=== PATIENT | female | born 1995 | race Caucasian/White ===

== ENCOUNTER 2023-07-04 04:07 | Emergency (ER) | payer MEDICAID ==
[~2023-07-04] VITALS: Ht 167.6 cm; Wt 73.0 kg
[2023-07-04 04:36] VITALS: BP 93/53; PULSE 80; RESP 16; O2SAT 97
[2023-07-04 05:23] LABS: BASOPHILS % 0.3 % (0.0-2.0); EOSINOPHILS % 0.3 % (0.0-5.0); HEMATOCRIT. 29.1 % (36.0-48.0); HEMOGLOBIN. 9.7 g/dL (12.0-16.0); LYMPHOCYTES % 10.8 % (20.0-50.0); MEAN CORPUSCULAR HEMOGLOBIN 29.6 pg (28.0-32.0); MEAN CORPUSCULAR HGB CONC 33.3 g/dL (31.0-37.0); MEAN PLATELET VOLUME 10.9 fl (7.4-10.4); MONOCYTES % 5.2 % (2.0-8.0); NEUTROPHILS % 83.4 % (40.0-76.0); PLATELET 143 x1000/uL (130-400); RED BLOOD CELL COUNT 3.27 mill/uL (4.2-5.4); RED CELL DISTRIBUTION WIDTH 13.1 % (11.6-14.6); WHITE BLOOD COUNT 8.4 x1000/uL (4.5-11.0)
[2023-07-04 05:34] LABS: CHLORIDE 109 mEq/L (98-107); INDEX HEMOLYSI 1 (1-3); INDEX ICTERIC 1 (1-4); INDEX LIPEMIC 1 (1-3); POTASSIUM 3.7 mEq/L (3.5-5.1); SODIUM 137 mEq/L (136-145)
[2023-07-04 06:01] LABS: ALANINE AMINOTRANSFERASE 15 IU/L (13-61); ASPARTATE AMINOTRANSFERASE 15 IU/L (15-37); B-HCG QUANTITATIVE 16201 mIU/mL (<3); BILIRUBIN TOTAL 0.4 mg/dL (0.1-1.0); CALCIUM 8.1 mg/dL (8.5-10.1); CARBON DIOXIDE 22 mEq/L (21-32); CREATININE 0.4 mg/dL (0.6-1.3); GLUCOSE 97 mg/dL (70-105); PROTEIN TOTAL 6.5 g/dL (6.0-8.3); UREA NITROGEN BLOOD 8 mg/dL (7-21)
[2023-07-04 07:30] VITALS: TEMP 99.2
[2023-07-04] MEDS ORDERED: ACETAMINOPHEN 325MG TABLET PO ONE (07:30)
[2023-07-04 10:08] LABS: CLARITY URINE CLEAR (CLEAR); COLOR URINE DARK YELLOW (YELLOW); GLUCOSE URINE NEGATIVE (NEGATIVE); KETONES URINE TRACE (NEGATIVE); LEUKOCYTE ESTERASE URINE 2+ (NEGATIVE); NITRITE URINE NEGATIVE (NEGATIVE); OCCULT BLOOD URINE NEGATIVE (NEGATIVE); PH URINE 6.5 (4.5-8.0); PROTEIN URINE TRACE (NEGATIVE); SPECIFIC GRAVITY URINE 1.024 (1.005-1.030); UROBILINOGEN URINE 0.2 E.U./dL (0.2-1.0)
[2023-07-04 10:13] LABS: RBC URINE 0-2 /hpf (0-2); SQUAMOUS EPITHELIAL CELL URINE 1+ /lpf (RARE/1+); YEAST URINE NONE SEEN
[2023-07-04 10:26] LABS: BACTERIA URINE FEW
[2023-07-04] MEDS ORDERED: TOPUD PO (11:44)
[2023-07-04] MEDS ORDERED: CEPH500T PO (11:44)
== END 2023-07-04 12:48 | disposition home or self-care (01) ==
LOC: ER 04:07
DX: O20.0 Threatened abortion (principal); O23.32 Infections of other parts of urinary tract in pregnancy, second trimester; Z3A.19 19 weeks gestation of pregnancy
CPT/HCPCS: 36415; 76805; 80053; 81003; 84702; 85025; 99284